=== PATIENT | female | born 1990 | race Caucasian/White ===

== ENCOUNTER → 2019-02-28 17:18 | Outpatient (CLI) | payer SELFPAY ==
[2019-02-28 09:01] VITALS: BMI 29.0
== END ==
PROVIDERS: Referring Provider Obstetrics & Gynecology; Visit Provider Obstetrics & Gynecology
DX: Z34.90 Encounter for supervision of normal pregnancy, unspecified, unspecified trimester (principal)
CPT/HCPCS: 87086; 87088

== ENCOUNTER → 2019-04-25 15:33 | Outpatient (CLI) | payer SELFPAY ==
[2019-04-25 15:23] VITALS: BMI 29.0
--- NOTE | 2019-04-25 15:36 | US_ITS ---
STUDY: SECOND AND THIRD TRIMESTER OBSTETRICAL ULTRASOUND REASON FOR EXAM: Female, 28 years old anatomy LMP: TECHNIQUE: Transabdominal TECHNICAL QUALITY: Adequate. PRIOR ULTRASOUND: None. FINDINGS: There is a single intrauterine fetus. The fetus is in a cephalic presentation. There is demonstrated cardiac activity with a heart rate of 145 bpm. There is a normal amniotic fluid volume. The largest amniotic fluid pocket measures 5.3 x 4.1 cm. The amniotic fluid index (MIAN) is 12.9 cm. The placenta is There are Grade 1 placental changes. The cervix measures 4.4 cm in length. The bilateral adnexal regions are normal. BIOMETRY: BPD: 7.63 cm: 30 weeks, 5 days HC: 28.57 cm: 31 weeks, 3 days AC: 27.8 cm: 31 weeks, 6 days FL: 6.13 cm: 31 weeks, 6 days CI: FL/BPD: 0.8 FL/HC: FL/AC: 0.22 HC/AC: 1.03 age by current US: 31 weeks, 4 days. JANETH by current US: June 23, 2019. Estimated weight: 1816 grams, +/- 265 grams, 29 %. age by prior US: weeks, days. JANETH by prior US: . Age by LMP: 32 weeks, 0 days. JANETH by LMP: June 20, 2019. ANATOMY: Limited study due to age Cranium: Suboptimal visualization. Chest: Normal 4-chamber heart. Abdomen/Pelvis: Normal diaphragm. Normal stomach. Normal abdominal wall. Normal cord insertion. 2 vessel cord Normal kidneys. Normal bladder. Spine: Normal cervical spine. Normal thoracic spine. Normal lumbar spine. Normal sacrum. Extremities: Distal upper and lower extremities not well visualized.. US/OB Anatomy Scan IMPRESSION: Viable intrauterine gestation approximately 31-32 weeks gestational age. Limited study of anatomy due to age. 2 vessel cord is noted of uncertain clinical significance Electronically Signed: Alberto Avina MD at 20:47 EST , Service support ,
[2019-04-25 18:00] LABS: Absolute Lymphocyte Count 2.98 X10^3/uL (0.83-4.51); Absolute Neutrophil Count 12.1 X10^3/uL (2.0-7.7); Basophil# 0.05 X10^3/uL; Basophil% 0.3 % (0-1); Eosinophil# 0.16 X10^3/uL; Eosinophils% 0.9 % (0-5); Hematocrit 34.6 % (37-47); Hemoglobin 11.5 g/dL (12.0-15.0); Lymphocyte # 2.98 X10^3/ul (4.0); Lymphocyte % 17.7 % (19-41); Mean Corp Hgb Conc 33.2 g/dL (32-36); Mean Corpuscular Hgb 31.9 pg (27.0-32.0); Mean Corpuscular Volume 95.8 fL (81-99); Mean Platelet Vol. 10.5 fl (6.2-12.0); Monocyte# 1.16 X10^3/uL; Monocyte% 6.9 % (0-10); NRBC Flagged by Analyzer 0 % (0-5); Neutrophil # 12.07 X10^3/uL (2.7-7.7); Neutrophil % 71.6 % (47-70); Platelet Count 240 K/mm3 (150-450); RBC Distribution Width CV 13.1 % (11.6-14.6); RBC Distribution Width SD 46.1 fl (35.1-43.9); Red Blood Count 3.61 M/mm3 (4.2-5.4); White Blood Count 16.9 K/mm3 (4.4-11.0)
== END ==
PROVIDERS: Family Provider Physician Assistant; PCP Physician Assistant; Referring Provider Obstetrics & Gynecology; Visit Provider Obstetrics & Gynecology
DX: Z34.80 Encounter for supervision of other normal pregnancy, unspecified trimester (principal); Z36.9 Encounter for antenatal screening, unspecified
CPT/HCPCS: 36415; 76805; 85025

== ENCOUNTER → 2019-05-26 15:11 | Outpatient (CLI) | payer SELFPAY ==
[2019-05-12 10:52] VITALS: BMI 29.0
[2019-05-26 14:32] VITALS: BMI 29.0
--- NOTE | 2019-05-26 15:11 | US_ITS ---
STUDY: SECOND AND THIRD TRIMESTER OBSTETRICAL ULTRASOUND - LIMITED REASON FOR EXAM: Female, 28 years old. Growth. Hx of two-vessel umbilical cord. LMP: September 13, 2018. PRIOR ULTRASOUND: April 25, 2019. TECHNIQUE: Transabdominal TECHNICAL QUALITY: Adequate. FINDINGS: There is a single intrauterine fetus. The fetus is in a cephalic presentation. There is demonstrated cardiac activity with a heart rate of 159 bpm. There is a normal amniotic fluid volume. The largest amniotic fluid pocket measures 7 cm. The amniotic fluid index (MIAN) is 17.48 cm. The placenta is posterior in location and is not low lying. There are Grade 2 placental changes. The cervix measures 3.65 cm cm in length. BIOMETRY: BPD: 8.52 cm: 34 weeks, 3 days HC: 30.36 cm: 33 weeks, 6 days AC: 30.19 cm: 34 weeks, 2 days FL: 6.91 cm: 35 weeks, 4 days Age by LMP: 36 weeks, 3 days. JANETH by LMP: June 20, 2019. age by prior US: 36 weeks, 0 days. JANETH by prior US: June 23, 2019. age by current US: 34 weeks, 4 days. JANETH by current US: July 03, 2019. Estimated weight: 2443 grams, +/- 357 grams, 11 percentile. Gender: Indeterminant US/OB Limited With Biometrics IMPRESSION: 1. Live single intrauterine at 34 weeks, 4 days. JANETH is July 03, 2019. This is 10 days behind expected gestational age by initial ultrasound. 2. EFW of 2443 g. This is at the 11th percentile. 3. MIAN of 17.48 cm. 4. Posterior grade 2 placenta. 5. Vertex presentation. Electronically Signed: Seferino Holcomb DO at 23:20 EST Tel [phone], Service support ,
== END ==
PROVIDERS: Family Provider Physician Assistant; PCP Physician Assistant; Referring Provider Obstetrics & Gynecology; Visit Provider Obstetrics & Gynecology
DX: Z34.80 Encounter for supervision of other normal pregnancy, unspecified trimester (principal); Q27.0 Congenital absence and hypoplasia of umbilical artery
CPT/HCPCS: 76816; 87081

== ENCOUNTER 2019-06-23 09:45 | Inpatient (IN) | payer SELFPAY ==
[2019-02-28 09:01] VITALS: BMI 29.0
[2019-06-13 14:59] VITALS: BMI 29.0
[2019-06-23] VITALS (17 sets, daily range): BP systolic 96–116; BP diastolic 46–69; PULSE 60–84; RESP 13–18; TEMP 36.4–36.9; O2SAT 96–100; BMI 30.6
[2019-06-23] MEDS: Lactated Ringers 1,000 ML 999 ML IV (10:15)
[2019-06-23 10:39] LABS: Absolute Lymphocyte Count 2.11 X10^3/uL (0.83-4.51); Basophil# 0.04 X10^3/uL; Basophil% 0.3 % (0-1); Eosinophil# 0.06 X10^3/uL; Eosinophils% 0.5 % (0-5); Hematocrit 40.2 % (37-47); Hemoglobin 13.5 g/dL (12.0-15.0); Lymphocyte # 2.11 X10^3/ul (4.0); Lymphocyte % 17.2 % (19-41); Mean Corp Hgb Conc 33.6 g/dL (32-36); Mean Corpuscular Hgb 31.8 pg (27.0-32.0); Mean Corpuscular Volume 94.6 fL (81-99); Mean Platelet Vol. 10.5 fl (6.2-12.0); Monocyte# 0.91 X10^3/uL; Monocyte% 7.4 % (0-10); NRBC Flagged by Analyzer 0 % (0-5); Neutrophil # 8.98 X10^3/uL (2.7-7.7); Neutrophil % 73.5 % (47-70); Platelet Count 200 K/mm3 (150-450); RBC Distribution Width CV 13.4 % (11.6-14.6); RBC Distribution Width SD 46.3 fl (35.1-43.9); Red Blood Count 4.25 M/mm3 (4.2-5.4); White Blood Count 12.2 K/mm3 (4.4-11.0)
[2019-06-23] MEDS: Lactated Ringers 1,000 ML 150 ML IV (11:23)
[2019-06-23 12:09] LABS: Rubella IgG 261.1 IU/mL
[2019-06-23 12:23] LABS: HIV - WCH Non-Reactive (Nonreactive); Hepatitis B Surface Antigen Non-Reactive (Nonreactive)
[2019-06-23] MEDS: Sodium Citrate/Citric Acid 30 ML UDC PO (12:25)
[2019-06-23] MEDS: Cefazolin 2 GM in 0.9% Normal Saline 100 ML IV (12:26)
--- NOTE | 2019-06-23 13:13 | PCM.HPOB.BLA ---
- Problem List (1) H/O section Status: Acute Comment: 2013 and 2015, previous for FTP 3 cm, 51-67% success rate, plan TOLAC by 41 weeks (2) Status: Acute Qualifiers: Comment: Cocare with Rogelio Mejía. declines genetic, carrier, and ntd screening. 11% growth- weekly appointment and recommended not to go past 40 weeks. (3) Supervision of other normal Status: Acute Comment: (declined new ob labs) JANETH 06/20/19 PC [facility] - [facility] (4) Two vessel umbilical cord Status: Acute Comment: recommend fu growth every 4 weeks. 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 Required: No Is patient in pain?: No Allergies No Known Allergies Allergy (Verified 06/13/19 14:52) Medications vitamin no.76-iron,carbonyl 29 mg iron-folic acid 1 mg tablet 1 tab PO DAILY 02/28/19 [History Confirmed 06/13/19] calcium carbonate 600 mg calcium (1,500 mg) tablet 600 mg PO DAILY 04/25/19 [History Confirmed 06/13/19] Last Menstral Period: 09/13/18 Zika: Zika virus screening: Negative : No PFSH PFSH Medical History No significant medical problems (Acute) Surgical History H/O section (Acute) Social History (Updated 06/13/19 @ 15:32 by Judy Aguiar MD) adopted: No household members: family housing: house number of children: 2 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 Date Name GA/Weeks Outcome Route Bth Weight Gen Labor Lgth Anesthesia Del Locatn Provider FOB 06/06/13 Cathy 43 live - full term 8.3 Female 35 hours [facility] Dr. Juan C Marina 02/08/16 Mir 41 live - full term 7.14 Male Located within [facility] Dr. Juan C Marina Delivery Date: 06/06/13 On 02/28/19 @ 09:07 Mary Sainz Failure to progress AoD at 2-3 cm Delivery Date: 02/08/16 No notes to display HPI nst: Details: DANN MORRIS is a 28 year old who presents for routine OB visit. OB Visit JANETH Calculator Estimated Delivery Date Method Current WG Current Estimate 06/20/19 LMP (Certain) 39w 0d Expected Delivery Route/Plan desires TOLAC patient counseled regarding risks/benefits of trial of labor versus repeat . ACOG and uptodate education given to patient. 51-67% % likelihood of success per calculator TOLAC consent form signed: Labor Preferences- labor support person: [] pain management options preferred: [] cut cord/dad catch: [] : [] PP control planned: [] discussed possible routes of delivery and associated risks: [] special requests: [] Specific Issue/Plans flu vaccine: declined tdap vaccine: declined rhogam: patient declines type and screen bt states not needed. LARC form signed: Problem list reviewed and updated with the most current plan of care details and appropriate orders placed. Relevant counseling for the gestational age provided. Continue routine care and follow up unless otherwise noted in visit notes/problem list details Initial Weight: 158 lb 6 oz Date EGA Weight BP Urine Prot Glucose FHR FuHt Pres Mov CTX Dilation Effaced St Visit Note 02/28/19 24w 0d 158 lb 6 oz (+0 oz) 150 25 discussed with patient- TOLAC candidate - reasomable. handouts given. plan cocare with rogelio mejía and delivery by 41 weeks 04/25/19 32w 0d 168 lb 2 oz (+9 lb 12 oz) 120/74 Negative Negative 130 32 cocare with rogelio mejía [facility] . had low iron with rogelio at home. recommend cbc today patient declines all other blood work. us today. 05/26/19 36w 3d 169 lb (+10 lb 10 oz) 108/71 Negative Negative 130 doing well doing well, gbs today. discussed recommendation for weekly nsts due to 2VC. patient declining due to 2VC AND patient declines weekly testing, seeing division operations manager rogelio mejía but planning a hospital doing well, gbs today. discussed recommendation for weekly nsts due to 2VC. patient declines weekly testing, seeing division operations manager rogelio mejía but planning a hospital 06/02/19 37w 3d 168 lb 4 oz (+9 lb 14 oz) Negative Negative 130 SM- discussed borderline growth with patient, MIAN normal with bedside US today. plan exp management until 40 weeks 06/13/19 39w 0d 170 lb (+11 lb 10 oz) 114/73 Negative Negative 140 38 SM- no vb lof good fm no regular ctx but having some B-H. discussed fu visit beginning of next week with Rogelio and plan fu with and here on thursday, delivery by 41 weeks if no spontaneous labor, either RLTCS or IOL depending on cervical exam Notes Visit Date: 06/13/19 ??No visit notes to display Visit Date: 06/02/19 ??No visit notes to display Visit Date: 05/26/19 ??No visit notes to display Visit Date: 04/25/19 ??cocare with rogelio mejía [facility] hospital . had low iron with rogelio at home. recommend cbc today patient declines all other blood work. us today. ??Judy Aguiar MD on 04/25/19 Visit Date: 02/28/19 ??discussed with patient- TOLAC candidate - reasomable. handouts given. plan cocare with rogelio mejía and delivery by 41 weeks ??Judy Aguiar MD on 02/28/19 Diagnostics Diagnostics Diagnostics Hgb 11.5 g/dL (12.0-15.0) L 04/25/19 Hct 34.6 % (37-47) L 04/25/19 Details: HIV: Urine Culture: Sequential Screen: NIPT Screen: Office Procedures OB NST Non-Stress Test Indications for Monitoring: Yes other (2 vessel cord) Heart Rate Baseline: 140 Heart Rate Variability: moderate Movement: Present Heart Rate Accelerations: Present Decelerations: Absent Contractions: Absent Impression: Yes Reactive Non-Stress Test Category 1 Results POC Urinalysis 2 Dip (Clinic) Office Urine Glucose Negative Last Edit by Mer Finn on 06/13/19 15:13 Office Urine Protein Negative Last Edit by Mer Finn on 06/13/19 15:13 Assessment & Plan Problems 1. Two vessel umbilical cord Q27.0 recommend fu growth every 4 weeks. borderline nl growth recommend weekly nsts and delivery between 40-41 weeks 2. Supervision of other normal Z34.80 (declined new ob labs) JANETH 06/20/19 PC [facility] 3. H/O section Z98.891 2013 and 2015, previous for FTP 3 cm, 51-67% success rate, plan TOLAC by 41 weeks 4. 39 weeks gestation of Z3A.39 Cocare with Rogelio Mejía. declines genetic, carrier, and ntd screening. 11% growth- weekly appointment and recommended not to go past 40 weeks. plan RLTCS Orders Orders: OB NST Today Q27.0 POC Urinalysis 2 Dip (Clinic) Today Coding Level of Care Code OB Routine Diagnoses Two vessel umbilical cord Q27.0 Supervision of other normal Z34.80 H/O section Z98.891 39 weeks gestation of Z3A.39 ??Weeks of gestation: 39 weeks Additional Codes Non-Stress Test (37856) UPDATE- I have seen the patient and performed any clinically relevant updates to the history and physical exam. Judy Aguiar MD
--- NOTE | 2019-06-23 13:14 | PCM.OPRPT ---
Problem List (1) H/O section Status: Acute Comment: 2013 and 2015, previous for FTP 3 cm, 51-67% success rate, plan TOLAC by 41 weeks (2) Status: Acute Qualifiers: Comment: Cocare with Tracey Mejía. declines genetic, carrier, and ntd screening. 11% growth- weekly appointment and recommended not to go past 40 weeks. (3) Supervision of other normal Status: Acute Comment: (declined new ob labs) JANETH 06/20/19 Mir Gutierrez (4) Two vessel umbilical cord Status: Acute Comment: recommend fu growth every 4 weeks. borderline nl growth recommend weekly nsts and delivery between 40-41 weeks Delivery Classification: Scheduled Final JANETH: 06/20/19 Gestational age: 40 Weeks and 3 Days economics instructor: Sarah Guerrero Type of Anesthesia:: Spinal Special Medications: none Implants Used: none Date of Procedure: 06/23/19 Pre-Operative Diagnosis: previous cs x 2 Post-Operative Diagnosis: same Description of Procedure: The patient is a repeat . Spinal anesthesia was placed without difficulty. Neal catheter was placed. The patient was placed in the dorsal supine position with leftward tilt. Patient was prepped and draped in the normal sterile fashion. Pfannenstiel skin incision was made with the scalpel and carried through to the underlying layer of fascia with the scalpel. Fascia was nicked in the midline and the incision extended laterally. The rectus bellies were dissected off superiorly and inferiorly with out complication both sharply and bluntly. The peritoneum was entered digitally. The incision was stretched and a low transverse uterine incision was made with the scalpel. The infant's head was delivered atraumatically followed by the anterior and posterior shoulders without complication the rest of the delivered. The cord was clamped and cut and the was handed off to awaiting nurse. The placenta was delivered spontaneously immediately following and was noted to be intact and have a three-vessel cord. The uterus was exteriorized cleared of all clots and debris, and the incision was closed in a double layer closure using #1 Monocryl. The ovaries and fallopian tubes were noted to be within normal limits. The uterus was returned to the maternal abdomen and gutters were cleared of all clots and debris. The peritoneum was closed with 3-0 Monocryl in a running fashion. Gloves were changed prior to fascial closure. Fascia was closed with 0 PDS in a running fashion. Subcutaneous tissue was copiously irrigated and the skin was closed with 3-0 Monocryl in a subcuticular fashion. Mepilex dressing was applied without complication. Patient was taken to recovery in stable condition. It was discussed with the patient that based on the clinical information obtained during this encounter, combined with her history, at this time I would recommend cesareans for future deliveries if further pregnancies are desired. Amniotic Membrane Rupture Type: Artificial Amniotic Fluid Description: Clear Placenta Disposition: [facility] Drain: Neal to straight drain Cord Entanglement: Around neck x 1, loose Cord Vessel Description: 3 Vessels Esitmated Blood Loss (ml): 700 Gender: Female Delayed cord clamping: Yes Antibiotic Given: Ancef 2 grams IV x1 Pt instructed on risks of surgery: Bleeding, Anesthesia Risks, Infection, Injury to surrounding structure(s) including bowel and bladder Complications: None - Admit VTE Documentation VTE Present on Admission: No VTE Mechan Device Prophylaxis: SCD's Multi Select Codes - Urinary/Genital Urinary/Genital CPT Codes: 93348 Vaginal Delivery [facility]
[2019-06-23] MEDS: Oxytocin 30 units/NS 500 ml 30 UNITS/500 ML IV.SOLN 167 UNITS IV (13:43)
[2019-06-23] MEDS: Lactated Ringers 1,000 ML 100 ML IV (17:00)
[2019-06-23] MEDS: Ketorolac 30 MG/ML Syringe IV (18:40)
[2019-06-23] MEDS: 0.9% Saline Lock 10 ML Syringe IV (18:40)
[2019-06-23 18:57] LABS: Chlamydia Trachomatis by PCR Negative (Negative); Neisserai gonorrhoeae by PCR Negative (Negative); Probe Check PASS; Sample Adequacy Control PASS; Specimen Processing Control PASS
[2019-06-24] VITALS (12 sets, daily range): BP systolic 91–106; BP diastolic 44–60; PULSE 58–71; RESP 14–18; TEMP 36.1–37.2; O2SAT 96–100
[2019-06-24] MEDS: 0.9% Saline Lock 10 ML Syringe IV ×4 (00:35→18:34)
[2019-06-24] MEDS: Ketorolac 30 MG/ML Syringe IV ×4 (00:35→18:34)
[2019-06-24 05:07] LABS: Hematocrit 29.6 % (37-47); Hemoglobin 9.8 g/dL (12.0-15.0); Mean Corp Hgb Conc 33.1 g/dL (32-36); Mean Corpuscular Hgb 31.8 pg (27.0-32.0); Mean Corpuscular Volume 96.1 fL (81-99); Platelet Count 163 K/mm3 (150-450); RBC Distribution Width CV 13.6 % (11.6-14.6); RBC Distribution Width SD 48.2 fl (35.1-43.9); Red Blood Count 3.08 M/mm3 (4.2-5.4); White Blood Count 18.6 K/mm3 (4.4-11.0)
--- NOTE | 2019-06-24 17:18 | PCM.PN.OB ---
Subjective: doing well no complaints pain controlled no CP SOB N V ambulating well tolerating po lochia moderate, going well - Physical Exam Vitals/I&O's: Vital Signs Temp Pulse Resp BP Pulse Ox 97.0 F L 68 16 97/50 L 97 06/24/19 16:11 06/24/19 16:11 06/24/19 16:11 06/24/19 16:11 06/24/19 13:00 Oxygen Delivery Method Room Air Weight: 167 lb 8.821 oz Body Mass Index (BMI) 30.6 Intake and Output for Last 24 Hours 06/22/19 06/23/19 06/24/19 23:59 23:59 23:59 Intake Total 2585.5 / 2585.5 958.33 / 958.33 Output Total 875 / 875 1500 / 1500 Balance 1710.5 / 1710.5 -541.67 / -541.67 General: Alert, Oriented x3 Laboratory Results 06/23/19 14:15: Chlam trachomat DNA PCR Negative, N.gonorrhoeae DNA (PCR) Negative 06/24/19 04:58: WBC 18.6 H, RBC 3.08 L, Hgb 9.8 L, Hct 29.6 L, MCV 96.1, MCH 31.8, MCHC 33.1, RDW Std Deviation 48.2 H, RDW Coeff of Kaya 13.6, Plt Count 163, MPV 10.0 Current Medications Acetaminophen (Tylenol) 1,000 mg PO Q8H PRN PRN Reason: Pain Score 1-3/10 Bisacodyl (Dulcolax) 10 mg RECTAL UD PRN PRN Reason: If no BM Hydrocortisone (Hytone) 1 applic TOPICAL TID PRN PRN; Protocol PRN Reason: Discomfort Naloxone HCl 4 mg/ Dextrose 504 mls @ 0 mls/hr IV .Q0M PRN; Protocol PRN Reason: Respiratory depression Ketorolac Tromethamine (Toradol) 30 mg IV Q6H SANDIE Stop: 06/25/19 13:01 Last Admin: 06/24/19 13:18 Dose: 30 mg Documented by: Methylergonovine Maleate (Methergine) 0.2 mg IM X1 PRN PRN Reason: Uterine Atony Naloxone HCl (Narcan) 0.02 mg IV Q1M PRN PRN Reason: RR <10 and pt unresponsive Naproxen (Naprosyn) 250 - 500 mg PO Q8H PRN PRN PRN Reason: Pain Score 1-3/10 Ondansetron HCl (Zofran) 4 mg IV Q4H PRN PRN PRN Reason: Nausea Oxycodone HCl (Oxyir) 5 - 10 mg PO Q4H PRN PRN PRN Reason: Pain Score 4-10/10 Prochlorperazine Edisylate (Compazine Iv) 10 mg IV Q6H PRN PRN PRN Reason: NAUSEA Senna/Docusate Sodium (Senokot-S, Alva-Colace) 0 tablet PO DAILY PRN PRN Reason: Constipation Simethicone (Mylicon) 80 mg PO PCHS PRN PRN Reason: Indigestion/stomach pain Sodium Chloride () 5 - 15 ml IV UD PRN PRN Reason: SALINE FLUSH Last Admin: 06/24/19 13:18 Dose: 10 ml Documented by: Medical Necessity - Tobacco Use Smoking Status: Never smoker Assessment/Plan All Active Problems (Last Reviewed 06/13/19 @ 14:52 by Mer Finn) Two vessel umbilical cord (Acute) (Acute) Supervision of other normal (Acute) H/O section (Acute) s/p LTCS PPD # 1 1. routine post care 2. breast feeding- support given 3. rh positive 4. rubella immune
[2019-06-25 02:00] VITALS: BP 106/54; PULSE 64; RESP 16; TEMP 36.9
[2019-06-25] MEDS: Ketorolac 30 MG/ML Syringe IV (02:01)
--- NOTE | 2019-06-25 04:04 | PCM.PN.OB ---
Subjective: doing well no complaints pain controlled no CP SOB N V ambulating well tolerating po lochia moderate, going well - Physical Exam Vitals/I&O's: Vital Signs Temp Pulse Resp BP Pulse Ox 98.4 F 64 16 106/54 L 97 06/25/19 02:00 06/25/19 02:00 06/25/19 02:00 06/25/19 02:00 06/24/19 13:00 Oxygen Delivery Method Room Air Weight: 167 lb 8.821 oz Body Mass Index (BMI) 30.6 Intake and Output for Last 24 Hours 06/23/19 06/24/19 06/25/19 23:59 23:59 23:59 Intake Total 2585.5 / 2585.5 958.33 / 958.33 Output Total 875 / 875 1500 / 1500 Balance 1710.5 / 1710.5 -541.67 / -541.67 General: Alert, Oriented x3 Laboratory Results 06/24/19 04:58: WBC 18.6 H, RBC 3.08 L, Hgb 9.8 L, Hct 29.6 L, MCV 96.1, MCH 31.8, MCHC 33.1, RDW Std Deviation 48.2 H, RDW Coeff of Kaya 13.6, Plt Count 163, MPV 10.0 Current Medications Acetaminophen (Tylenol) 1,000 mg PO Q8H PRN PRN Reason: Pain Score 1-3/10 Bisacodyl (Dulcolax) 10 mg RECTAL UD PRN PRN Reason: If no BM Hydrocortisone (Hytone) 1 applic TOPICAL TID PRN PRN; Protocol PRN Reason: Discomfort Naloxone HCl 4 mg/ Dextrose 504 mls @ 0 mls/hr IV .Q0M PRN; Protocol PRN Reason: Respiratory depression Ketorolac Tromethamine (Toradol) 30 mg IV Q6H SANDIE Stop: 06/25/19 13:01 Last Admin: 06/25/19 02:01 Dose: 30 mg Documented by: Methylergonovine Maleate (Methergine) 0.2 mg IM X1 PRN PRN Reason: Uterine Atony Naloxone HCl (Narcan) 0.02 mg IV Q1M PRN PRN Reason: RR <10 and pt unresponsive Naproxen (Naprosyn) 250 - 500 mg PO Q8H PRN PRN PRN Reason: Pain Score 1-3/10 Ondansetron HCl (Zofran) 4 mg IV Q4H PRN PRN PRN Reason: Nausea Oxycodone HCl (Oxyir) 5 - 10 mg PO Q4H PRN PRN PRN Reason: Pain Score 4-10/10 Prochlorperazine Edisylate (Compazine Iv) 10 mg IV Q6H PRN PRN PRN Reason: NAUSEA Senna/Docusate Sodium (Senokot-S, Alva-Colace) 0 tablet PO DAILY PRN PRN Reason: Constipation Simethicone (Mylicon) 80 mg PO PCHS PRN PRN Reason: Indigestion/stomach pain Sodium Chloride () 5 - 15 ml IV UD PRN PRN Reason: SALINE FLUSH Last Admin: 06/24/19 18:34 Dose: 10 ml Documented by: Medical Necessity - Tobacco Use Smoking Status: Never smoker Assessment/Plan All Active Problems (Last Reviewed 06/13/19 @ 14:52 by Mer Finn) Two vessel umbilical cord (Acute) (Acute) Supervision of other normal (Acute) H/O section (Acute) s/p LTCS PPD # 2 1. routine post care 2. breast feeding- support given 3. rh positive 4. rubella immune
--- NOTE | 2019-06-25 04:07 | DCINST_ITS ---
Discharge Diet: No Restrictions Discharge Activity: May Not Drive - for 2 weeks, May not drive while taking narcotic pain medications., May Shower, May Take a Tub Bath - in 7 days May resume sexual activity in: 4-6 weeks Lifting Restrictions: 20 pounds Additional Activity Instructions:: Nothing in the vagina for 4-6 weeks. You may return to work/school in 6 weeks. Call your doctor if your incision/area has: Continuous Slow Oozing, Sudden Increased Bleeding, Increased Pain/ Swelling, Increased Redness, Foul Smelling Discharge Call your doctor if you observe: Fever of 101 or Higher, Using more than one pad per hour - for 2 hours Suture Line Care: Avoid Pulling/Pushing, Avoid Pinching/Bending Cleanse incision/area with: Keep Dressing Clean & Dry Additional Instructions: If you experience any of the following, contact your healthcare provider. * Bleeding that soaks a pad every hour for 2 hours * Fever 100.4 or higher * Unrelieved incision or abdominal pain * Swelling, redness, discharge or bleeding from your incision or episiotomy site * Your incision begins to separate * Problems urinating (including inability to urinate or burning while urinating). * Visual changes * Severe headache * Flu-like symptoms * Pain or redness in one of both of your breasts * Pain, warmth, tenderness or swelling in your legs, especially the calf area * Frequent nausea and vomiting * Symptoms of depression or anxiety If you experience any of the following, call 911 or go to the nearest Emergency Room. * Chest pain * Problems breathing * Seizure activity * Partial or complete paralysis of a body part, slurred speech, weakness or drooping of the face, or a sudden inability to walk or hold your balance Allergies/Adverse Reactions: Allergies No Known Allergies Allergy (Verified 06/13/19 14:52) Medications to take at Discharge vitamin no.76-iron,carbonyl 29 mg iron-folic acid 1 mg tablet 1 tab PO DAILY 02/28/19 calcium carbonate 600 mg calcium (1,500 mg) tablet 600 mg PO DAILY 04/25/19 Naproxen [Naprosyn] 250 - 500 mg PO Q8H PRN PRN #30 tab 06/25/19 Oxycodone HCl/Acetaminophen [Percocet 5-325] 1 - 2 tablet PO Q6H PRN PRN 7 Days #10 tablet 06/25/19 The following prescriptions were given: Naproxen [Naprosyn] 250 - 500 mg PO Q8H PRN PRN #30 tab PRN Reason: MILD PAIN Transmission Status: Pending to [facility] Oxycodone HCl/Acetaminophen [Percocet 5-325] 1 - 2 tablet PO Q6H PRN PRN 7 Days #10 tablet PRN Reason: Pain Transmission Status: Sent to [facility] Follow-Up: Call to make an appointment with your doctor for an incision check in 1-2 weeks. You will also need a 6 week post- follow up appointment. Test results from this visit will be discussed in further detail at your follow- up appointment, if applicable. Please Follow Up With: Judy Aguiar MD - Call to make an appointment for an incision check in 1-2 [phone] When: You will need a post- check in 6 weeks. Primary Care Physician: Beck Vaz DO [Primary Care Provider] -
[2019-06-25 07:40] VITALS: BP 111/70; PULSE 73; RESP 16; TEMP 36.4; O2SAT 98
[2019-06-25] MEDS: Naproxen 250 MG Tablet PO (08:53)
[2019-06-30 03:15] LABS: Rapid Plasmin Reagin (RPR) NONREACTIVE (NONREACTIVE)
== END 2019-06-25 10:50 | disposition home or self-care (01) | DRG 788 ==
PROVIDERS: Admitting Provider Obstetrics & Gynecology; PCP Physician Assistant; Referring Provider Obstetrics & Gynecology; Visit Provider Obstetrics & Gynecology
PROC: 10D00Z1 Extraction of Products of Conception, Low, Open Approach (ICD-10-PCS; CPT 59514; principal; 2019-06-23 11:45)
DX: O34.219 Maternal care for unspecified type scar from previous cesarean delivery (principal); O35.8XX0 Maternal care for other (suspected) fetal abnormality and damage, not applicable or unspecified; O69.81X0 Labor and delivery complicated by cord around neck, without compression, not applicable or unspecified; Z37.0 Single live birth; Z3A.40 40 weeks gestation of pregnancy; Z28.21 Immunization not carried out because of patient refusal
CPT/HCPCS: 85025; 85027; 86592; 86703; 86762; 86850; 86900; 86901; 87340; 87491; 87591; 99218; 99251; J7120; A4216; G0378; G0463; J2405

== ENCOUNTER → 2024-01-22 | Outpatient (CLI) | payer SELFPAY ==
[2024-01-25 20:07] LABS: Chlamydia By Nucleic Acid AMP Negative (Negative); Gonococcus By Nucleic Acid AMP Negative (Negative)
[2024-01-27 16:10] LABS: HPV APTIMA, High Risk Negative (Negative)
== END | disposition home or self-care (01) ==
LOC: LAB 11:17 → LABSPEC 12:58
PROVIDERS: PCP Physician Assistant; Referring Provider Advanced Practice Midwife; Visit Provider Advanced Practice Midwife
DX: Z34.90 Encounter for supervision of normal pregnancy, unspecified, unspecified trimester (principal)
CPT/HCPCS: 87086; 87491; 87591; 87624; 88175; G0145